=== PATIENT | male | born 1945 | race Caucasian/White ===

== ENCOUNTER 2020-11-23 14:16 | Outpatient (RCR) | payer MEDICARE, SELFPAY ==
[2020-11-23] MEDS: COVID-19 VACC, MRNA(PFIZER)/PF 30 MCG/0.3 ML SYRINGE IM (10:58)
[2020-12-14] MEDS: COVID-19 VACC, MRNA(PFIZER)/PF 30 MCG/0.3 ML SYRINGE IM (10:53)
== END 2021-02-15 23:59 ==
LOC: IMMUN 14:16
PROVIDERS: PCP Family Medicine; Visit Provider Family Medicine
DX: Z23 Encounter for immunization (principal)
CPT/HCPCS: 0001A; 0002A; 91300

== ENCOUNTER 2022-01-25 01:12 | Inpatient (IN) | payer MEDICARE, SELFPAY ==
[2022-01-25] VITALS (19 sets, daily range): BP systolic 98–139; BP diastolic 52–98; PULSE 76–101; RESP 14–24; TEMP 36.4–36.8; O2SAT 92–100; BMI 30.2
--- NOTE | 2022-01-25 01:22 | EKG12_ITS ---
Test Reason : POST STENT Blood Pressure : / mmHG Vent. Rate : 080 BPM Atrial Rate : 080 BPM P-R Int : 194 ms QRS Dur : 102 ms QT Int : 404 ms P-R-T Axes : 062 060 -44 degrees QTc Int : 465 ms Sinus rhythm with frequent Premature ventricular complexes in a pattern of bigeminy Septal infarct , age undetermined T wave abnormality, consider inferior ischemia Abnormal ECG When compared with ECG of 25-JAN-2022 02:12, MANUAL COMPARISON REQUIRED, DATA IS UNCONFIRMED Confirmed by JAVIER PORTILLO, WILLIAM ([id number]), editor index MÓNICA PERALTA ([id number]) on 01/27/2022 11:05:15 A M Referred By: JAIME Confirmed By:GLORIA HERRERA MD
--- NOTE | 2022-01-25 01:41 | ECHOCS_ITS ---
Reason For Study: S/ P GA Procedure This was a 2D Doppler, Color Flow transthoracic echocardiogram. The study was technically difficult. Contrast injection was performed. Exam performed portable in patient room. Left Ventricle Normal LV size. Mild segmental systolic dysfunction (see wall motion). The estimated ejection fraction is 40 %. Diastolic function is indeterminate. Mid-Anterior : Akinetic. Mid-Lateral : Hypokinetic. Mid-inferoseptal : Hypokinetic. Mid-anteroseptal : Akinetic. [place] : Akinetic. Right Ventricle Normal RV size. Normal systolic function. Atria Normal left atrium. Normal right atrium. No doppler evidence for ASD. Mitral Valve There is no mitral annular calcification. Moderate focal mitral valve calcification of the anterior leaflet. Trivial mitral valve insufficiency. Tricuspid Valve Normal tricuspid valve. Trivial tricuspid valve insufficiency. Right ventricular systolic pressure estimated to be 29 mmHg. Aortic Valve Trisinus/trileaflet aortic valve. Mild diffuse aortic valve thickening. Mild focal aortic valve calcification. Mild to moderate aortic stenosis. Pulmonic Valve The pulmonic valve is not well visualized. Great Vessels Normal sized aortic root. Pericardium/Pleural No pericardial effusion. Medication Diluted definity 3ml given slow IV push to enhance endocardial definition. MMode/2D Measurements & Calculations RVDd: 3.5 cm LVOT diam: 2.0 cm Ao root diam: 3.5 cm LVOT area: 3.3 cm2 LAV(MOD-bp): 40.8 ml SV(MOD-sp4): 79.5 ml LVAd ap4: 45.8 cm2 LAV(MOD-bp) Indexed: 18.7 ml/m2 LVLd ap4: 9.2 cm LAV(MOD-sp2): 42.3 ml EDV(MOD-sp4): 189.5 ml LAV(MOD-sp4): 36.4 ml EDV(sp4-el): 193.3 ml LVAs ap4: 33.5 cm2 LVLs ap4: 8.4 cm ESV(MOD-sp4): 110.0 ml ESV(sp4-el): 113.8 ml EF(MOD-sp4): 42.0 % EF(sp4-el): 41.1 % SV(sp4-el): 79.5 ml LA dimension(2D): 3.7 cm LA A4 area: 15.5 cm2 RA A4 area: 14.4 cm2 Time Measurements MV dec time: 0.22 sec Doppler Measurements & Calculations MV E max owen: 114.7 cm/sec Lat Peak E' Owen: 8.7 cm/sec Med Peak E' Owen: 6.7 cm/sec MV A max owen: 114.2 cm/sec E/E' lat: 13.1 E/E' med: 17.1 MV E/A: 1.0 Ao V2 max: 234.1 cm/sec AI max owen: 383.5 cm/sec LV V1 max: 78.8 cm/sec Ao max P.0 mmHg AI max P.9 mmHg LV V1 max P.5 mmHg Ao V2 mean: 167.9 cm/sec AI dec slope: 265.8 cm/sec2 LV V1 mean P.4 mmHg Ao mean P.8 mmHg AI P1/2t: 422.5 msec LV V1 mean: 55.0 cm/sec Ao V2 VTI: 50.5 cm LV V1 VTI: 17.3 cm LAVELLE(I,D): 1.1 cm2 LAVELLE(V,D): 1.1 cm2 SV(LVOT): 56.3 ml PA V2 max: 91.1 cm/sec TR max owen: 252.9 cm/sec TR max P.6 mmHg ECHO/Echo Complete W/ Contrast Interpretation Summary The study was technically difficult. Contrast injection was performed. Mild segmental systolic dysfunction (see wall motion). The estimated ejection fraction is 40 %. Moderate focal mitral valve calcification of the anterior leaflet. Trivial mitral valve insufficiency. Trivial tricuspid valve insufficiency. Mild to moderate aortic stenosis. Right ventricular systolic pressure estimated to be 29 mmHg. Diastolic function is indeterminate. Ordering Physician: Dimas Romero Referring Physician: [place] Performed By: Vianney Cheema RDCS
--- NOTE | 2022-01-25 02:06 | PCM.HP.STD ---
HPI - General General Date of Admission: 01/25/22 Date of Service: 01/25/22 Chief Complaint: Non-STEMI HPI Narrative GRACE CASAS, is a 76 M who presents to [facility] PCU as a direct admission from [facility] emergency room, patient went to the emergency room today with complaints of indigestion-like symptoms and lower chest discomfort. Patient states he has been having problems over the last 2 to 3 weeks, it appears that the discomfort is related to exertion, patient was using a tiller today and he had an increase in discomfort and was instructed to come to the hospital at [facility] for evaluation. Lab work done at [facility] ER showed his troponin to be elevated at 2456, EKG was obtained and it showed a normal sinus rhythm at 90, there were nonspecific ST-T wave changes in the lateral wall leads but no injury pattern was noted by this examiner. Patient's chest x-ray report was not included in the information I received from [facility], I understood that the patient's creatinine was normal-this lab was also not included in the paperwork from [facility]. Patient CBC was unremarkable. At the time of my examination here, patient does not complain of any chest discomfort, shortness of breath, or any nausea. Patient denied any episode of left or right arm pain and he had no episodes of any pain radiating into his jaw or neck area. Patient has no history of hyperlipidemia, he is being treated for hypertension, type 2 diabetes, and it was relayed to me by the emergency room doctor at [facility] that the patient has a history of rheumatoid although he is on no medication for rheumatoid arthritis. I talked with Dr. Mishra last night concerning this patient, the plan for the patient will be to proceed with a cardiac catheterization and possible stent insertion this morning. [facility] Medical History (Updated 01/25/22 @ 02:[address] Dimas Romero, DO) Cellulitis Diabetes Gout Hypertension Kidney stone Home Medications allopurinol 300 mg PO DAILY 11/10/13 [History Last Taken Unknown] losartan [Cozaar] 100 mg PO DAILY 11/10/13 [History Last Taken Unknown] metformin 500 mg PO DAILY 11/10/13 [History Last Taken Unknown] amlodipine 2.5 mg PO DAILY 01/25/22 [History Last Taken Unknown] Allergy/AdvReac Type Severity Reaction Status Date / Time ibuprofen AdvReac Intermediate Swelling Verified 01/25/22 02:03 codeine AdvReac Unknown Vomiting Verified 01/25/22 01:22 gabapentin [From Neurontin] AdvReac Unknown Hives Verified 01/25/22 01:22 lisinopril [From Prinivil] AdvReac Unknown Swelling Verified 01/25/22 01:22 naproxen sodium [From Aleve] AdvReac Unknown Swelling Verified 01/25/22 01:22 Surgical History (Updated 01/25/22 @ 01:35 by Joyce Avery) Hx of appendectomy S/P hernia surgery Social History Smoking Status: Former smoker ROS Constitutional Constitutional: Denies anorexia, change in weight, chills, fatigue, fever(s), malaise, night sweats or weakness Eyes Eyes: Denies blurry vision, change in eye color, change in vision, discharge from eye(s) or eye pain ENT HEENT: Denies abnormal hearing, dysphagia or headache(s) Cardiovascular Cardiovascular: Reports chest pain; Denies claudication, edema or palpitations Respiratory/Chest Respiratory/Chest: Reports dyspnea; Denies cough, hemoptysis, shortness of breath at rest or shortness of breath with exertion Gastrointestinal Gastrointestinal: Denies abdominal pain, constipation, diarrhea, hematemesis, hematochezia, melena, nausea or vomiting Genitourinary Genitourinary: Denies dysuria, hematuria, urinary frequency, urinary hesitancy, urinary incontinence or urinary urgency Musculoskeletal Musculoskeletal: Denies back pain, joint pain, joint stiffness, joint swelling, myalgias or neck pain Neurologic Neurologic: Denies abnormal gait, abnormal speech, dizziness, focal weakness, headache(s), loss of vision, numbness, other visual disturbances, paresthesias, syncope or tingling Psychiatric Psychiatric: Denies anxiety, cognitive impairment, depression, irritability, mood swings or suicidal ideation Endocrine Endocrinology: Denies change in body appearance, cold intolerance, excessive sweating, heat intolerance, polydipsia or polyuria Hematologic/Lymphatic Hematologic/Lymphatic: Reports other Details: And has chronic right leg swelling and redness ; Denies none, anemia, easy bleeding, easy bruising or lymphadenopathy Allergic/Immunologic Allergic/Immunologic: Denies rhinitis, urticaria, eczemia or asthma Vital Signs Vital Signs Vital Signs: 01/25/22 01:48 Temperature 98.3 F Temperature Source Oral Pulse Rate 94 Respiratory Rate 14 Blood Pressure 133/85 H Blood Pressure Mean 101 Blood Pressure Source Monitor Blood Pressure Position Semi-Fowlers Blood Pressure Location Left Arm Pulse Ox 98 Oxygen Delivery Method Room Air Weight Weight: 98.5 kg Body Mass Index (BMI) 30.2 Physical Exam Const alert, oriented x3, no apparent distress and healthy appearing General Appearance: cooperative, well kempt and well developed Orientation / Consciousness: awake, oriented to person, oriented to place and oriented to time HEENT normocephalic, head/scalp atraumatic, hearing grossly normal bilaterally and moist oral mucous membranes Eyes PERRL, EOMs intact bilaterally and conjunctivae normal Neck nuchal rigidity, supple, no JVD, thyroid normal and no carotid bruits General: trachea midline Resp normal respiratory effort, no retractions, no use of accessory muscles and clear to auscultation bilaterally Auscultation: Negative for rales, rhonchi or wheezes Cardio regular rate, regular rhythm, S1 normal heart sound, S2 normal heart sound, no murmurs, no rub and no gallops GI normal to inspection, nondistended, normoactive bowel sounds, soft to palpation, non-tender and non-distended Extremity Extremity Narrative: Patient has chronic venous stasis changes noted over the right lower leg along with swelling as compared with the left lower leg. The right lower leg is somewhat warmer to the touch than the left lower leg. Skin Skin Narrative: There is evidence of chronic venous stasis changes over the right lower leg General Skin Exam: no breakdown Neuro oriented x3, CN's II-XII intact bilaterally, no focal motor deficits and no sensory deficits noted Sensorium / Orientation: awake and alert Speech: speech normal Psych affect normal Assessment & Plan Assessment/Plan (1) Non-STEMI (non-ST elevated myocardial infarction): PLAN: 1. [id number] was admitted to PCU, he was placed on aspirin, on a statin, and his heparin drip which was started at [facility] is going to be continued, patient was placed on a beta-marisa, cardiac enzymes will be cycled. Patient will have an echocardiogram performed, he will be seen by cardiology in consultation early this morning for a cardiac catheterization today. #2 essential hypertension-patient's medications are on hold at this time due to his n.p.o. status for cardiac catheterization, they will need to be ordered after the cardiac catheterization. #3 type 2 diabetes-patient's metformin will be held, I did not order fingerstick blood sugars on the patient-he is n.p.o. at this time #4 chronic lymphedema the right lower leg with stasis dermatitis changes-patient stated that he used to wear compression stockings but he has not worn any in quite some time. I advised the patient to consider wrapping his leg at home or getting another prescription for compression stockings. Charges/Coding Visit Charges Inpatient E&M: 19323 Init Hosp L3
--- NOTE | 2022-01-25 02:55 | NURSING ---
pt arrived from [facility] with Heparin infusing at 10ml/hr. Spoke with Kan in pharmacy who stated to keep Heparin running at 10cc/hr and adjust with next PTT.
[2022-01-25 03:08] LABS: Troponin-I HS 5126 pg/mL (3.0-78.0)
[2022-01-25 04:46] LABS: Troponin-I HS 8235 pg/mL (3.0-78.0)
[2022-01-25] MEDS: Metoprolol Tartrate 25 MG Tablet 12.5 MG PO ×2 (06:17→20:57)
[2022-01-25] MEDS: Aspirin 81 MG TAB.CHEW PO (06:17)
[2022-01-25 06:55] LABS: Partial Thromboplast Time 44.9 Seconds (24.1-36.2)
--- NOTE | 2022-01-25 07:45 | NURSING ---
Heparin drip turned off per Dr. Mishra's verbal order
[2022-01-25] MEDS: 0.9% Saline Lock 10 ML Syringe IV ×2 (07:47→12:52)
--- NOTE | 2022-01-25 08:22 | CON.PCM.CA_ITS ---
Assessment & Plan Assessment/Plan (1) Non-STEMI (non-ST elevated myocardial infarction): PLAN: The patient presents with a clinical scenario and objective findings compatible with an acute non-ST segment elevation RI. There is concerns this is a type I event. At the present time the patient is being monitored. He will continue medical management as deemed appropriate. He has been recommended for further evaluation with diagnostic cardiac catheterization. The procedure and risks of been discussed with him. He was agreeable to this. (2) HTN (hypertension): PLAN: The patient will continue antihypertensive therapy with adjustment as deemed appropriate. (3) Diabetes mellitus: PLAN: The patient will continue evaluation care per internal medicine. (4) Leg edema: PLAN: The patient has chronic lower extremity peripheral pitting edema with the right being greater than left which he states has been present since he had lower extremity cellulitis years ago . (5) Cardiac murmur: PLAN: She does have a cardiac murmur. He will be further evaluated with a transthoracic echocardiogram to evaluate for any obvious underlying ovular heart related issues. Addt'l Comments This note was generated using a voice recognition system and there may be incorrect words, spelling or punctuation that were not noted when reviewing the office note prior to saving. HPI Consult Data Date of Consult: 01/25/22 HPI Narrative HPI Narrative: GRACE CASAS, is a 76 year old white male who presents for cardiovascular consultation based upon concerns of an acute non-ST segment elevation RI for imposed upon a history of hypertension and hyperlipidemia. To the best of his knowledge he does not believe he has ever been diagnosed with any cardiovascular condition in the past. He states that over the last 1 to 2 weeks he has not felt as well when he has been up and active. He states he has had gas bubble sensation in his upper abdomen and lower chest as well as a discomfort in his left chest area and radiating down his left upper extremity. He became more short of breath and dyspneic with activity. He would have to stop and rest. He does not recall any ongoing nausea, emesis, or becoming abruptly diaphoretic. There was no report of near syncope or syncope. He states his symptoms worsened yesterday when he was working in his garden. He subsequently presented to [facility] emergency department. There he underwent evaluation. He had abnormal high-sensitivity troponin I levels and was subsequently recommended for transfer to [facility] for further evaluation and care. Here he states while resting he has felt somewhat better. His high sensitive troponin I levels have been elevated. His ECG demonstrated the appearance of sinus rhythm with occasional PVCs with a septal RI pattern of indeterminate age. He has been treated medically including IV heparin. [facility], [facility] Medical History (Updated 01/25/22 @ 08:[address] King Mishra MD) Cardiac murmur Cellulitis Diabetes Diabetes mellitus Gout HTN (hypertension) Hypertension Kidney stone Leg edema Home Medications allopurinol 300 mg PO DAILY 11/10/13 [History Last Taken Unknown] losartan [Cozaar] 100 mg PO DAILY 11/10/13 [History Last Taken Unknown] metformin 500 mg PO DAILY 11/10/13 [History Last Taken Unknown] amlodipine 2.5 mg PO DAILY 01/25/22 [History Last Taken Unknown] Allergy/AdvReac Type Severity Reaction Status Date / Time ibuprofen AdvReac Intermediate Swelling Verified 01/25/22 02:03 codeine AdvReac Unknown Vomiting Verified 01/25/22 01:22 gabapentin [From Neurontin] AdvReac Unknown Hives Verified 01/25/22 01:22 lisinopril [From Prinivil] AdvReac Unknown Swelling Verified 01/25/22 01:22 naproxen sodium [From Aleve] AdvReac Unknown Swelling Verified 01/25/22 01:22 Surgical History (Updated 01/25/22 @ 01:35 by Joyce Avery) Hx of appendectomy S/P hernia surgery Social History Smoking Status: Former smoker ROS Constitutional Constitutional: Reports as per HPI Eyes Eyes: Reports as per HPI ENT HEENT: Reports as per HPI Cardiovascular Cardiovascular: Reports chest pain, chest pain with activity, dyspnea on exertion and radiating jaw, neck or arm pain Respiratory/Chest Respiratory/Chest: Reports dyspnea Gastrointestinal Gastrointestinal: Reports as per HPI Genitourinary Genitourinary: Reports as per HPI Musculoskeletal Musculoskeletal: Reports as per HPI Integumentary Integumentary: Reports as per HPI Neurologic Neurologic: Reports as per HPI Psychiatric Psychiatric: Reports as per HPI Physical Exam Const alert, oriented x3 and no apparent distress Orientation / Consciousness: awake HEENT normocephalic, head/scalp atraumatic and hearing grossly normal bilaterally Eyes PERRL, EOMs intact bilaterally and conjunctivae normal Neck full ROM, supple and no JVD Resp clear to auscultation bilaterally Cardio regular rate, regular rhythm, S1 normal heart sound and S2 normal heart sound Heart Sounds: murmur systolic II/ soft mid left sternal border and LVOT GI normal to inspection, nondistended, normoactive bowel sounds Extremity General Extremity: edema bilateral lower extremity (R>L: Chronic appearing) Details: moderate Skin Skin Narrative: Neck appearing right lower extremity edematous changes Neuro oriented x3, moves all extremities, no focal motor deficits and no sensory deficits noted Psych mental status grossly normal Risk Stratification Risk Stratification Applicable: Yes Age >/= 65: Yes >/= 3 CAD Risk Factors (HTN, HLD, DM, family hx of CAD, or current smoker): Yes Aspirin Use in the Past 7 Days: No Severe Angina (>/= episodes in 24 hours): Yes EKG ST Changes >/= 0.5mm: No Positive Cardiac Marker: Yes TEDDY Risk Stratification Score: 4 TEDDY % Risk: 20% Risk Procedure Criteria Type of Procedure Procedure Type: Elective Elective Risks - COVID COVID Risk Discussion: The surgeon/proceduralist and patient have discussed in detail the risk of exposure to and/or potential harm posed by the COVID-19 virus with having a surgery/procedure at this time versus the risk of delaying the surgery/procedure. It is not possible to know either the risk of delaying the surgery or procedure or chance of getting an infection with perfect accuracy, but a joint decision was made between the patient and the surgeon/proceduralist to proceed at this time with the scheduled surgery/procedure as indicated on the consent form. Objective Data Vital Signs: Vital Signs Temp Pulse Resp BP Pulse Ox 98.1 F 83 18 139/66 H 97 01/25/22 08:00 01/25/22 08:00 01/25/22 08:00 01/25/22 08:00 01/25/22 08:00 Oxygen Delivery Method Room Air Weight: 217 lb 2.485 oz Body Mass Index (BMI) 30.2 Intake & Output: Intake and Output for Last 24 Hours 01/23/22 01/24/22 01/25/22 23:59 23:59 23:59 Intake Total 120 / 120 Balance 120 / 120 Lab / Micro Data Labs: Laboratory Results - last 24 hr 01/25/22 02:00: Troponin I High Sens 5126 H* 01/25/22 03:52: Troponin I High Sens 8235 H* 01/25/22 06:00: APTT 44.9 H Cardiology Labs/Tests 01/25/22 06:00: APTT 44.9 H Rhythm: Sinus rhythm EKG: As noted above
[2022-01-25 09:11] LABS: Troponin-I HS 14790 pg/mL (3.0-78.0)
--- NOTE | 2022-01-25 09:37 | CASEMGMT ---
[facility], the following are in-network tertiary facilities: [facility], [facility], [facility], [facility], [facility], [facility], [place], [employer], and . Triston GUADALUPE CM
--- NOTE | 2022-01-25 10:29 | CL.D_ITS ---
Patient Name: GRACE CASAS Study Date: 01/25/2022 Performing: King Mishra MD Ht: 70.86 inches 180 cm : 1945 Wt: 218.26 lbs 99 kg Age: 76 Gender: male BSA: 2.19 PROCEDURE(S) PERFORMED DC01-(17993)LHC/COR/LV IC12-(77003/C9600)ARMOND W/WO PTCA, SINGLE CORONARY ARTERY CLINICAL PROFILE AND INDICATIONS Indications: Worsening Angina, ACS <= 24 hrs, Suspected CAD Heart Failure: None Stress/Imaging Stress/Image Study Performed: No Angina Classification Anginal Classification w/in 2 Weeks: CCS III CAD Presentations: Non-STEMI. CONCLUSIONS Elevated Left Ventricular End Diastolic Pressure Segmented LV systolic dysfunction- Mild LVEF: by LV gram 45 % [place] Multivessel CAD Mitral Valve Insufficiency Mild RECOMMENDATIONS Risk factor modification Medical therapy Referred for immediate PCI DESCRIPTION OF PROCEDURE The patient arrived to the procedure lab. The risks and benefits of the procedure as well as a full d escription of our services here and current unavailability of surgical backup were fully explained to the patient and/or their significant other prior to the catheterization. The Timeout was completed, verifying the correct patient and procedure. The patient's procedural site was prepped and draped in the usual fashion. Local anesthetic was given subcutaneously to right radial region with Lidocaine 2% . Using a modified Seldinger technique, arterial access was obtained via the right radial artery, a 6 Fr sheath was inserted. Right Coronary Artery selective angiography was performed in multiple views using a 5 Fr. 4.0 [place] catheter. Left Coronary Artery selective angiography was performed in multipl e views using a 5 Fr. JL3.5 catheter. Left Ventriculography was performed in STEIN[place]G projection using a 5 Fr. [place] catheter. LV to AO pullback pressures were then recorded.The arterial sheath was pulled and a TR Band was applied for hemostasis CORONARY ANGIOGRAPHY DOMINANCE: Right Dominant LEFT HEART ASSESSMENT Left Ventricular Ejection Fraction: by LV Gram 45 % Anterior Hypokinesis. Apical Akinesis Elevated Left Ventricular End Diastolic Pressure LVEDP: 31 mmHg LEFT MAIN: Mild luminal irregularities LEFT ANTERIOR DESCENDING ARTERY: Mild luminal irregularities PROX LAD: 95 % Stenosis DIAGONAL 1: Proximal - Mild luminal irregularities, Proximal - Mild luminal irregularities CIRCUMFLEX ARTERY: PROX CIRC: Mild luminal irregularities RIGHT CORONARY ARTERY: Mild luminal irregularities VALVE FINDINGS: Mitral Valve Insufficiency - Grade 1 AORTIC ROOT: Angiographically normal COMPLICATIONS No Complications PROCEDURE MEDICATIONS Fentanyl 50 mcg IV Versed 1 mg IV Versed 1 mg IV Oxygen: 2 L/min via nasal cannula Heparin given IA 01/25/2022 09:14:40 Heparin 4000 unit(s) IV 01/25/2022 09:51:06 Verapamil 2.5mg, Ntg 100mcgs, 3000 units of Heparin given IA 01/25/2022 09:14:40 SUMMARY OF HEMODYNAMIC DATA Time AIR REST ECG 08:57:20 AO 108/70 (87) SA 09:23:31 AO 105/61 (80) 09:30:31 LV 148/14, 35 09:41:02 LV 141/11, 31 09:41:10 LV 134/11, 37 09:42:09 LV 131/11, 29 09:42:17 LVp 139/10, 39 09:42:23 AOp 114/61 (79) 09:42:30 10:27:31 Signed By King Mishra MD On 01/25/2022 10:28:21 King Mishra MD
--- NOTE | 2022-01-25 10:53 | EKG12_ITS ---
Test Reason : CP ADMIT Blood Pressure : / mmHG Vent. Rate : 096 BPM Atrial Rate : 096 BPM P-R Int : 188 ms QRS Dur : 098 ms QT Int : 366 ms P-R-T Axes : 051 022 076 degrees QTc Int : 462 ms Sinus rhythm with frequent and consecutive Premature ventricular complexes Septal infarct , age undetermined Abnormal ECG When compared with ECG of 29-JAN-2002 08:43, Premature ventricular complexes are now Present Septal infarct is now Present QT has lengthened Confirmed by AHSAN PORTILLO, JENNIFER ([id number]), film editor supervisor MÓNICA PERALTA ([id number]) on 01/25/2022 2:07:54 PM Referred By: DR SANDOVAL Confirmed By:JENNIFER FOREMAN MD
--- NOTE | 2022-01-25 11:09 | CL.I_ITS ---
Patient Name: GRACE CASAS Study Date: 01/25/2022 Performing: Madelaine Horner MD Ht: 70.87 inches 180 cm : 1945 Wt: 218.26 lbs 99 kg Age: 76 Gender: male BSA: 2.19 PROCEDURE(S) PERFORMED IC12-(54148/C9600)ARMOND W/WO PTCA, SINGLE CORONARY ARTERY CLINICAL PROFILE AND CO-MORBIDITIES Indications: Worsening Angina, ACS <= 24 hrs, Suspected CAD Heart Failure: None Stress/Imaging Stress/Image Study Performed: No Angina Classification Anginal Classification w/in 2 Weeks: CCS III CAD Presentations: Non-STEMI. CONCLUSIONS Successful ARMOND to pLAD RECOMMENDATIONS DESCRIPTION OF PROCEDURE The patient arrived to the procedure lab. The risks and benefits of the procedure as well as a full d escription of our services here and current unavailability of surgical backup were fully explained to the patient and/or their significant other prior to the catheterization. The Timeout was completed, verifying the correct patient and procedure. The patient's procedural site was prepped and draped in the usual fashion. Local anesthetic was given subcutaneously to right radial region with Lidocaine 2% Using a modified Seldinger technique,arterial access was obtained via the right radial artery, a 6Fr sheath was inserted. Right Coronary Artery selective angiography was performed in multiple views usi ng a 5 Fr. 4.0 [place] catheter. Left Coronary Artery selective angiography was performed in multiple v iews using a 5 Fr. JL3.5 catheter. Left Ventriculography was performed in STEINBERG projection using a 5 Fr . Pigtail catheter. LV to AO pullback pressures were then recorded.The images were reviewed and options discussed. A decision was then made to proceed with an Intervention, IVUS or oth er adjunct procedure. XB 3.0 Guide catheter was inserted and engaged into the LCA. BMW Hoven Guide wire was advance d to the LAD. Emerge 3.0 x 12 Balloon catheter was inserted. Balloon catheter was advanced across les ion in the LAD, proximal. Angiogram performed pre balloon dilatation. PTCA balloon inflated at 8 atms for 12 secs. PTCA balloon inflated at 8 atms for 10 secs. Angiogram performed post balloon dilatamelisa Turner 3.5 x 13 Drug Eluting stent was inserted. Drug Eluting stent was advanced across the lesion in the LAD, proximal. Angiogram performed pre stent deployment. Angiogram performed post stent deplo yment. The arterial sheath was pulled and a TR Band was applied for hemostasis INTERVENTION INFORMATION LESION SITE: LAD (Proximal) Lesion Complexity: High/C, chronic total occlusion: No, lesion at bifurcation: No, thrombus present: No, lesion length: 12 mm, culprit lesion: Yes, Previously treated lesion: No Pre Stenosis: 95 % Pre intervention TEDDY flow: 3 PROCEDURE: Drug Eluting Stent with pre dilatation. Post Stenosis: 0 % Post intervention TEDDY flow: 3 Lesion Devices: Stearns .014 BMW Hoven Straight 190cm Cardinal 6 Fr XB3.0 100cm Guide Catheter Cricket Sci EMERGE MR 3.00x12 BALLOON Biotronik Orsiro [place] MR ARMOND 3.5x13 COMPLICATIONS No Complications PROCEDURE MEDICATIONS Fentanyl 50 mcg IV Versed 1 mg IV Versed 1 mg IV Oxygen: 2 L/min via nasal cannula Brilinta 180 mg PO @ 01/25/2022 10:31:22 Heparin given IA 01/25/2022 09:14:40 Heparin 4000 unit(s) IV 01/25/2022 09:51:06 Verapamil 2.5mg, Ntg 100mcgs, 3000 units of Heparin given IA 01/25/2022 09:14:40 SUMMARY OF HEMODYNAMIC DATA Time AIR REST ECG 08:57:20 AO 108/70 (87) SA 09:23:31 AO 105/61 (80) 09:30:31 LV 148/14, 35 09:41:02 LV 141/11, 31 09:41:10 LV 134/11, 37 09:42:09 LV 131/11, 29 09:42:17 LVp 139/10, 39 09:42:23 AOp 114/61 (79) 09:42:30 RM AIR REST 10:27:31 Signed By Madelaine Horner MD On 01/25/2022 11:08:11 Madelaine Horner MD
[2022-01-25 11:20] LABS: Hematocrit 37.1 % (40-54); Hemoglobin 12.9 g/dL (13.0-16.5); Mean Corp Hgb Conc 34.8 g/dL (32-36); Mean Corpuscular Hgb 34.9 pg (27.0-32.0); Mean Corpuscular Volume 100.3 fL (80-94); Mean Platelet Vol. 10.6 fl (6.2-12.0); Platelet Count 196 K/mm3 (150-450); RBC Distribution Width CV 13.5 % (11.6-14.6); RBC Distribution Width SD 49.6 fl (35.1-43.9)
--- NOTE | 2022-01-25 11:27 | CRPHASE1 ---
Patient Communication PHII Cardiac Rehab Discussed with Patient:: Yes Guide to Cardiac Rehab Given to Patient:: Yes Cardiac Rehab Facility Choice List Given to Patient:: Yes Choice Program [facility] CR PHII:: Communication Given to CR Neurosurgery Spine Physician:: Milvia Horner Refer Phase II Cardiac Rehab:: Yes Sessions:: 36 sessions - 3 days/wk, 12 weeks Cardiac Rehabilitation Info Cardiac Rehabilitation Program Information: Cardiac Rehabilitation is important for patients like you who are recovering from a heart problem. Cardiac rehabilitation programs are recognized as integral to the continued care of the patient with coronary heart disease. The cardiac rehabilitation program is designed to optimize a patient's physical, psychological, and social functioning. Health child care group leader work in cardiac rehabilitation programs and assist you with getting the treatments you need to get stronger and healthier - like exercise, healthy eating habits, and medications. Cardiac rehabilitation has been show to help people with heart problems live longer and have better life enjoyment than people who do not go to cardiac rehabilitation. Please contact the Cardiac Rehabilitation Program at [facility] at in two weeks if you have not heard from them.
--- NOTE | 2022-01-25 11:28 | CRPH1.INSTRU ---
General Education CAD and cardiac anatomy and function:: Patient communicates acknowledgment Explanation of diagnoses and procedures:: Patient communicates acknowledgment Sign/Symptoms of [place]:: Patient communicates acknowledgment Antiplatelet therapy: Patient communicates acknowledgment Proper use of NTG-SL: Patient communicates acknowledgment Emergency procedures and activation of EMS: Patient communicates acknowledgment Compliance of all prescribed medications: Patient communicates acknowledgment Smoking Patient Nicotine/Smoking Risk Factors Are:: Cigarettes Recommendations Include:: Previous smoker; encourage continued cessation Nicotine/Smoking Response Code:: Patient communicates acknowledgment Dyslipidemia Patient Dyslipidemia Risk Factors Are:: Total Cholesterol, Triglycerides, HDL, LDL Recommendations Include:: Lipid profile not available Dyslipidemia Response Code:: Patient communicates acknowledgment Overweight/Obesity Patient Overweight/Obesity Risk Factors Are:: Obesity - > or = 30 Recommendations Include:: Weight loss of 5-10% Overweight/Obesity:: Patient communicates acknowledgment Hypertension Recommendations Include:: Maintain BP <130/85 Hypertension:: Patient communicates acknowledgment Heart Disease Patient Heart Disease Risk Factors Are:: Family history of heart disease < 65 years old, Previous cardiac event Recommendations Include:: Educated family members of their risk, Educated family members of importance of prevention of heart disease Heart Disease Response Code:: Patient communicates acknowledgment Diabetes Patient Diabetes Risk Factors Are:: Elevated blood sugars Recommendations Include:: Maintain fasting blood sugars 70-110 md/dL, Maintain HgbA1c of 6% or less, Monitor blood sugar as prescribed, Diabetic dietary guidelines, Decrease/maintain body weight Diabetes:: Patient communicates acknowledgment Sedentary Patient Sedentary Risk Factors Are:: Lack of regular exercise Recommendations Include:: Aerobic exercise 5-7 times/week for 20-30 minutes continuously, Benefits of regular exercise, Discussed home walking program, Monitored Outpatient Cardiac Rehab Sedentary Response Code:: Patient communicates acknowledgment Stress Recommendations Include:: Identification of stressors, and assessment of coping skills, Stress management techniques Stress Response Code:: Patient communicates acknowledgment
[2022-01-25] MEDS: 0.9% Normal Saline 1,000 ML 80 ML IV (11:30)
--- NOTE | 2022-01-25 12:00 | CHAPLAIN ---
Type of Pastoral Visit _x__ Initial Visit ___ Follow-up Visit ___ On-call Visit ___ General Patient Visit ___ Spiritual Assessment ___ Family Conference ___ Bereavement ___ Rapid Response ___ Code Blue ___ Other (describe below) Pastoral Care Referral From _x__ Patient ___ Family ___ Nurse ___ Physician ___ Planning Manager ___ Underwriting Support Specialist ___ Other (describe below) Sacrament/Intervention _x__ Active listening ___ Anointing ___ Taoism ___ Bereavement ___ Communion ___ Valeri exploration ___ _x__ Life review _x__ Prayer ___ Reconciliation ___ Sacrament of Sick ___ Supportive presence ___ Wedding ___ Other (describe below) Pastoral Comments
--- NOTE | 2022-01-25 12:40 | NURSING ---
Pt complaining that he cannot breathe. O2 saturations 97-100% on RA at this time, placed on 2L NC for comfort and notified MD.
[2022-01-25] MEDS: Morphine 4 MG/ML Syringe IV (12:53)
[2022-01-25] MEDS: ALPRAZolam 0.25 MG Tablet PO ×2 (13:11→20:55)
--- NOTE | 2022-01-25 13:30 | CASEMGMT ---
COLLINS JOSEPH assessment: Face to Face with patient for initial transition planning/care coordination assessment. COLLINS JOSEPH introduced self and role at [facility], pt voices understanding and consents to assessment. Pt is sitting up in chair in no distress on 2L nc. Pt's daughter is at bedside during assessment. Pt is A/Ox4 and answers all questions appropriately. Care providers, pharmacy, and demographics verified/updated. Presentation: Pt is direct admit from [facility] for epigastric pain, worse w/ exertion Admitting dx: NSTEMI PCP: Steffanie Specialists: None Preferred Pharmacy: [facility] Insurance: [facility] Prescription Benefit: [facility] Living Will/HPOA: Pt does not have LW/HPOA and declines AD info. LNOK: Miryam Mclaughlin, daughter; Don Richardson, brother Living Arrangements: Pt lives with daughter, son-in-law, and grandson in mobile home with 3 steps in and states no concerns at home. Pt is independent with ADL's. Transportation: Pt drives self and states no transportation concerns. DME/HHC: Pt has a cane at home and states no need for any further DME. Pt states no hx of HHC but has been to [facility] in the past. Pt/daughter state no concerns with going home at time of discharge. Pt is retired. Pt chews tobacco but states does not smoke cigarettes and rarely drinks ETOH. Pt voices no further concerns/needs. CM to follow for any further discharge planning/needs. Advised pt to ask for CM if any further questions/concerns/needs arise, voices understanding. Pt Goal: Home Plan[place] COLLINS JOSEPH
--- NOTE | 2022-01-25 13:52 | PN.HOSP_ITS ---
Documented by User: Gilberto RABAGO 01/25/22 13:56 Hospitalist Note Patient is a 76-year-old male who was admitted early on the morning of 01/25/2022 for evaluation of chest pain. 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 Recommendations were to continue medical management and refer for immediate PCI. Patient underwent PCI and had stent placed. Recommendations were to continue current management and initiate ticagrelor with aspirin, statin and beta-marisa regimen. PT/OT eval pending, case fitter consult for discharge planning. Patient seen by Gilberto Rosas PA-C, under the supervision of Dr. Freedman. Documented by User: Dr. Harley Freedman MD 01/25/22 15:34 Hospitalist Note Patient was admitted early in the morning by my colleague as a direct transfer from [facility] ED. Patient has complaint of chest discomfort and shortness of breath dizziness ongoing for last 2 to 3 weeks mainly with exertion but has been more frequent and persistent therefore went to ED for evaluation. The patient is admitted in PCU. Twelve-lead EKG done shows normal sinus rhythm with frequent PVCs with nonspecific ST-T changes. QTc 462 ms. Isolated troponin high 510 126 went up to 14, 790. Patient was taken to [facility]. Proximal LAD 95% stenosis, diagonal 1 mid luminal irregularities. Patient had PCI done. LV gram EF 45% with anterior hypokinesis and apical akinesis. Discussed with the apprentice jockey. Patient on guideline directed medications for non-STEMI. On aspirin, metoprolol, Brilinta and atorvastatin. BMP is ordered. Patient on losartan 100 mg daily at home. Hold losartan today and may be resumed tomorrow if blood pressure permits with lower dose. 2D echo was done, EF 40%. Mild to moderate aortic stenosis, trivial MR and TR.
[2022-01-25] MEDS: Atorvastatin Calcium 40 MG Tablet PO (20:55)
[2022-01-25] MEDS: TICAGRELOR 90 MG TABLET PO (20:55)
[2022-01-26] VITALS (7 sets, daily range): BP systolic 112–122; BP diastolic 60–70; PULSE 80–85; RESP 18; TEMP 36.8–37.1; O2SAT 94–96
[2022-01-26 06:22] LABS: Absolute Lymphocyte Count 1.05 X10^3/uL (0.83-4.51); Absolute Neutrophil Count 4.3 X10^3/uL (2.0-7.7); Basophil# 0.02 X10^3/uL; Basophil% 0.3 % (0-1); Eosinophil# 0.14 X10^3/uL; Eosinophils% 2.3 % (0-5); Hematocrit 35.7 % (40-54); Hemoglobin 12.2 g/dL (13.0-16.5); Lymphocyte # 1.05 X10^3/ul (0.83-4.51); Lymphocyte % 17.5 % (19-41); Mean Corp Hgb Conc 34.2 g/dL (32-36); Mean Corpuscular Hgb 33.4 pg (27.0-32.0); Mean Corpuscular Volume 97.8 fL (80-94); Mean Platelet Vol. 9.5 fl (6.2-12.0); Monocyte# 0.49 X10^3/uL; Monocyte% 8.2 % (0-10); NRBC Flagged by Analyzer 0 % (0-5); Neutrophil # 4.28 X10^3/uL (2.7-7.7); Neutrophil % 71.2 % (47-70); Platelet Count 183 K/mm3 (150-450); RBC Distribution Width CV 13.7 % (11.6-14.6); RBC Distribution Width SD 49.1 fl (35.1-43.9); Red Blood Count 3.65 M/mm3 (4.6-6.2)
[2022-01-26 06:51] LABS: ALB/GLOB Ratio 0.8 RATIO (0.9-2.4); AST(SGOT) 72 U/L (15-37); Alanine Aminotransfer ALT/SGPT 37 U/L (16-61); Albumin, Serum 2.8 g/dL (3.2-5.0); Alkaline Phosphatase 57 U/L (45-117); Anion Gap 7 (5-15); BUN 20 mg/dL (7-18); BUN/Creat Ratio 17.9 RATIO (10-20); Calcium,Total 8.1 mg/dL (8.5-10.1); Chloride 107 mmol/L (98-107); Creatinine, Serum 1.12 mg/dL (0.70-1.30); EST Glomerular Filtration Rate 68 mL/min (>60); Est Glom Filt Rate - Afr Amer 82 mL/min (>60); Globulin 3.4 g/dL (2.2-4.2); Glucose 124 mg/dL (74-106); Potassium 3.9 mmol/L (3.5-5.1); Protein, Total 6.2 g/dL (6.4-8.2); Sodium Level 136 mmol/L (136-145)
[2022-01-26] MEDS: TICAGRELOR 90 MG TABLET PO (08:52)
[2022-01-26] MEDS: Aspirin 81 MG TAB.CHEW PO (08:52)
[2022-01-26] MEDS: ALPRAZolam 0.25 MG Tablet PO (08:52)
[2022-01-26] MEDS: Metoprolol Tartrate 25 MG Tablet 12.5 MG PO (08:52)
[2022-01-26] MEDS: Losartan Potassium 50 MG Tablet PO (08:53)
--- NOTE | 2022-01-26 09:36 | PN.CARD_ITS ---
Subjective Subjective The patient is awake and alert. He denies ongoing symptoms of classic angina pectoris at this time. He states occasionally he still feels somewhat short of breath as he points to his epigastric area. He states he is also coughed up some dark sputum. He has been up and active without any obvious difficulty with ambulation-in the room. Objective Data Vital Signs: Vital Signs Temp Pulse Resp BP Pulse Ox 98.2 F 81 18 112/60 96 01/26/22 08:45 01/26/22 08:52 01/26/22 08:45 01/26/22 08:52 01/26/22 08:45 Oxygen Flow Rate (L/min) 2 Oxygen Delivery Method Room Air Weight: 217 lb 2.485 oz Body Mass Index (BMI) 30.2 Intake & Output: Intake and Output for Last 24 Hours 01/24/22 01/25/22 01/26/22 23:59 23:59 23:59 Intake Total 681.99 / 921.99 440 / 440 Output Total 300 / 300 Balance 681.99 / 621.99 140 / 140 Lab / Micro Data Result Diagrams: 01/26/22 05:40 01/26/22 05:40 Labs: Laboratory Results - last 24 hr 01/25/22 03:52: WBC 6.0, RBC 3.70 L, Hgb 12.9 L, Hct 37.1 L, MCV 100.3 H, MCH 34.9 H, MCHC 34.8, RDW Std Deviation 49.6 H, RDW Coeff of Fabian 13.5, Plt Count 196, MPV 10.6 01/26/22 05:40: WBC 6.0, RBC 3.65 L, Hgb 12.2 L, Hct 35.7 L, MCV 97.8 H, MCH 33.4 H, MCHC 34.2, RDW Std Deviation 49.1 H, RDW Coeff of Fabian 13.7, Plt Count 183, MPV 9.5, Immature Gran % (Auto) 0.500, Neut % (Auto) 71.2 H, Lymph % (Auto) 17.5 L, Erath % (Auto) 8.2, Eos % (Auto) 2.3, Baso % (Auto) 0.3, Absolute Neuts (auto) 4.3, Absolute Lymphs (auto) 1.05, Nucleated RBC % 0 01/26/22 05:40: Sodium 136, Potassium 3.9, Chloride 107, Carbon Dioxide 22.0, Anion Gap 7, BUN 20 H, Creatinine 1.12, Estim Creat Clear Calc 60.70, Est GFR (MDRD) Af Amer 82, Est GFR (MDRD) Non-Af 68, BUN/Creatinine Ratio 17.9, Glucose 124 H, Calcium 8.1 L, Total Bilirubin 0.80, AST 72 H, ALT 37, Alkaline Phosphatase 57, Total Protein 6.2 L, Albumin 2.8 L, Globulin 3.4, Albumin/Globulin Ratio 0.8 L Cardiology Labs/Tests 01/25/22 03:52: WBC 6.0, RBC 3.70 L, Hgb 12.9 L, Hct 37.1 L, MCV 100.3 H, MCH 34.9 H, MCHC 34.8, Plt Count 196, MPV 10.6 01/26/22 05:40: WBC 6.0, RBC 3.65 L, Hgb 12.2 L, Hct 35.7 L, MCV 97.8 H, MCH 33.4 H, MCHC 34.2, Plt Count 183, MPV 9.5, Immature Gran % (Auto) 0.500, Neut % (Auto) 71.2 H, Lymph % (Auto) 17.5 L, Erath % (Auto) 8.2, Eos % (Auto) 2.3, Baso % (Auto) 0.3, Absolute Neuts (auto) 4.3, Nucleated RBC % 0 01/26/22 05:40: Sodium 136, Potassium 3.9, Chloride 107, Carbon Dioxide 22.0, Anion Gap 7, BUN 20 H, Creatinine 1.12, Est GFR (MDRD) Af Amer 82, Est GFR (MDRD) Non-Af 68, BUN/Creatinine Ratio 17.9, Glucose 124 H, Calcium 8.1 L, Total Bilirubin 0.80 Rhythm: Sinus rhythm EKG: Sinus rhythm; septal AK of indeterminate age; nonspecific T wave change- less prominent than the previous ECG Radiography Diagnostic Testing: Radiology Impression Echocardiogram 01/25/22 01:41 Interpretation Summary The study was technically difficult. Contrast injection was performed. Mild segmental systolic dysfunction (see wall motion). The estimated ejection fraction is 40 %. Moderate focal mitral valve calcification of the anterior leaflet. Trivial mitral valve insufficiency. Trivial tricuspid valve insufficiency. Mild to moderate aortic stenosis. Right ventricular systolic pressure estimated to be 29 mmHg. Diastolic function is indeterminate. Ordering Physician: Dimas Romero Referring Physician: [place] Performed By: Vianney Cheema RDCS Physical Exam Const alert, oriented x3 and no apparent distress Orientation / Consciousness: awake HEENT normocephalic, head/scalp atraumatic and hearing grossly normal bilaterally Eyes PERRL, EOMs intact bilaterally and conjunctivae normal Neck full ROM, supple and no JVD Resp clear to auscultation bilaterally Cardio regular rate, regular rhythm, S1 normal heart sound and S2 normal heart sound Heart Sounds: murmur systolic II/ soft mid left sternal border and LVOT GI normal to inspection, nondistended, normoactive bowel sounds Extremity General Extremity: edema bilateral lower extremity (R>L: Chronic appearing) Details: moderate Skin Skin Narrative: Neck appearing right lower extremity edematous changes Neuro oriented x3, moves all extremities, no focal motor deficits and no sensory deficits noted Psych mental status grossly normal Assessment & Plan Assessment/Plan (1) Non-STEMI (non-ST elevated myocardial infarction): PLAN: The patient presents with a clinical scenario and objective findings compatible with an acute non-ST segment elevation AK. There is concerns this is a type I event. The patient has undergone further evaluation with diagnostic cardiac catheterization. He was found to have angiographically significant appearing LAD disease. He subsequently underwent LAD PCI/ARMOND. He is going to continue medical therapy. (2) Cardiomyopathy, ischemic: PLAN: The patient does appear to have diminished LV systolic function. This appears to be based upon his LAD disease process. He will continue medical therapy. He will be followed by echocardiogram in the future to monitor for changes in his left ventricular wall motion and systolic function. (3) HTN (hypertension): PLAN: The patient will continue antihypertensive therapy with adjustment as deemed appropriate. (4) Diabetes mellitus: PLAN: The patient will continue evaluation care per internal medicine. (5) Leg edema: PLAN: The patient has chronic lower extremity peripheral pitting edema wit h the right being greater than left which he states has been present since he had lower extremity cellulitis years ago . (6) Cardiac murmur: PLAN: She does have a cardiac murmur. He does have what appears to be aortic valve stenosis. He will need to be followed by history, exam, and future echocardiographic studies to monitor for progression of his underlying valvular heart related issues. Addt'l Comments The patient will continue noncardiac evaluation care based upon his other concerning symptoms and her findings by internal medicine. This note was generated using a voice recognition system and there may be incorrect words, spelling or punctuation that were not noted when reviewing the office note prior to saving. Procedure Criteria Type of Procedure Procedure Type: Elective Elective Risks - COVID COVID Risk Discussion: The surgeon/proceduralist and patient have discussed in detail the risk of exposure to and/or potential harm posed by the COVID-19 virus with having a surgery/procedure at this time versus the risk of delaying the surgery/procedure. It is not possible to know either the risk of delaying the surgery or procedure or chance of getting an infection with perfect accuracy, but a joint decision was made between the patient and the surgeon/proceduralist to proceed at this time with the scheduled surgery/procedure as indicated on the consent form.
--- NOTE | 2022-01-26 09:36 | VDLE_ITS ---
Reason For Study: Swelling RIGHT LEFT GSV is normal. GSV is normal. CFV is compressible, spontaneous, phasic, CFV is compressible, spontaneous, phasic, competent and demonstrates normal competent, and demonstrates normal augmentation. augmentation. FV is compressible, spontaneous, phasic, FV is compressible, spontaneous, phasic, competent and demonstrates normal competent and demonstrates normal augmentation. augmentation. POP V is compressible, spontaneous, phasic, POP V is compressible, spontaneous, phasic, competent and demonstrates normal competent and demonstrates normal augmentation. augmentation. T/P Trunk is compressible. T/P Trunk is compressible. PTV is compressible. PTV is compressible. RT PerV is compressible. LT PerV is compressible. Procedure This is a venous duplex using B-mode, color flow and spectral Doppler. Exam performed portable in patient room. A preliminary report was called and/or faxed to PROFESSOR OF ART HISTORY. VL/Venous Duplex US - Christopher Extrem Interpretation Summary No evidence for acute deep venous thrombosis bilateral lower extremities with p atent and compressible bilateral great saphenous veins. Ordering Physician: Shirley Morales Referring Physician: Terry Valiente Performed By: Laura Hernandez RVT
--- NOTE | 2022-01-26 09:40 | PCM.DC ---
Discharge Instructions Diet Discharge Diet: Low fat / Low cholesterol, 1800 Calorie Control Diet and 2000 mg Sodium Diet Activity Discharge Activity: Return to Normal Activity and May Not Drive Dressing / Incision Call your doctor if you observe: Fever of 101 or Higher, Coldness, Increased Pain, Numbness or Tingling, Change in Color, Inability to urinate, Inability to have a bowel movement, Shortness of breath, Dizziness, Fainting spells, Swelling in the ankles, Chest pain, Prolonged hiccupping, Increased palpitations (irregular heartbeat), Calf discomfort and Uncontrolled pain Follow Up Care Test Results: Test results from this visit will be discussed in further detail at your follow-up appointment, if applicable. Discharge Plan Admission Admit Date/Time: 01/25/22 01:12 Primary Reason for Your Visit: NSTEMI Attending Provider: Harley Freedman Primary Care Provider: Terry Valiente Consulting Providers: King Mishra ; Dimas Romero Discharge Orders/Prescriptions Prescriptions: New losartan 50 mg Tablet 25 mg PO DAILY Qty: 30 RF: 2 atorvastatin 40 mg Tablet 40 mg PO QHS Qty: 30 RF: 2 nitroglycerin 0.4 mg Tablet, Sublingual 0.4 mg sublingual Q5M PRN (Reason: Cardiac/Chest Pain) Qty: 30 RF: 0 aspirin 81 mg Tablet,Chewable 81 mg PO BREAKFAST Qty: 30 RF: 2 Brilinta 90 mg Tablet 90 mg PO BID Qty: 60 RF: 2 metoprolol succinate 25 mg capsule,sprinkle,ER 24hr 25 mg PO DAILY Qty: 30 RF: 2 buspirone 10 mg tablet 10 mg PO TID Qty: 90 RF: 0 Continued allopurinol 300 MG tablet 300 mg PO DAILY RF: 0 losartan [Cozaar] 100 MG tablet 100 mg PO DAILY RF: 0 metformin 500 MG tablet 500 mg PO DAILY RF: 0 Discontinued amlodipine 2.5 mg Tablet 2.5 mg PO DAILY RF: 0 Referrals / Follow Up: Terry Valiente MD [Primary Care Provider] - King Mishra MD [STAFF PHYSICIAN] - Within 1 Month Ros Hunt NP, [employer] RANGE TENDER-C [Nurse Practitioner] - 02/15/22 2:00 pm Disposition Disposition (needs filled in before D/C Order can be placed): Home, Self Care
--- NOTE | 2022-01-26 10:00 | EKG12_ITS ---
Test Reason : AM EKG Blood Pressure : / mmHG Vent. Rate : 084 BPM Atrial Rate : 084 BPM P-R Int : 208 ms QRS Dur : 102 ms QT Int : 378 ms P-R-T Axes : 049 031 141 degrees QTc Int : 446 ms Sinus rhythm with occasional Premature ventricular complexes Septal infarct , age undetermined Abnormal ECG When compared with ECG of 25-JAN-2022 11:19, MANUAL COMPARISON REQUIRED, DATA IS UNCONFIRMED Confirmed by JAVIER PORTILLO, WILLIAM ([id number]), development editor MÓNICA PERALTA ([id number]) on 01/27/2022 11:03:56 A M Referred By: DR DOYLE Confirmed By:GLORIA HERRERA MD
--- NOTE | 2022-01-26 10:07 | CASEMGMT ---
Pt to be sent home on Brilinta at discharge and med e-scribed to [facility] in [place]. Call to Kirstin at [facility] and she states co-pay is $47. Pt provided with Brilinta one month free card with instructions at this time. Pt voices no further questions/concerns/needs. Triston GUADALUPE CM
[2022-01-26 10:13] LABS: Cholesterol 151 mg/dL (200); High Density Lipoprotein 31 mg/dL; Triglycerides 182 mg/dL; Very Low Density Lipoprotein 36 mg/dL (5-40)
--- NOTE | 2022-01-26 10:52 | DS.PCM_ITS ---
Documented by User: NUVIA Castro 01/26/22 13:25 Providers Date of Admission: 01/25/22 Primary Care Physician: Dr. Los Angeol MD Consultations 01/25/22 01:41 Consult: Cardiology Routine Consulting Provider: King Mishra Reason for Consult: NSTEMI EMERGENT Consult: No MD Notified: Yes Date Notified: 01/24/22 Time Notified: 23:10 Method of Notification: Verbal Method of Consult:: In-Person Reason For Visit: N STEMI Diagnosis Discharge Diagnosis (1) Non-STEMI (non-ST elevated myocardial infarction): Status: Acute Code(s): I21.4 - Non-ST elevation (NSTEMI) myocardial infarction (2) Cardiomyopathy, ischemic: Status: Acute Code(s): I25.5 - Ischemic cardiomyopathy (3) HTN (hypertension): Status: Chronic Code(s): I10 - Essential (primary) hypertension (4) Diabetes mellitus: Status: Acute Code(s): E11.9 - Type 2 diabetes mellitus without complications (5) Leg edema: Status: Acute Code(s): R60.0 - Localized edema (6) Cardiac murmur: Status: Acute Code(s): R01.1 - Cardiac murmur, unspecified Plan: Patient originally presented on 01/25/2022 with complaints of chest pain and indigestion-like symptoms. Patient further evaluation. Patient's troponin was noted to be elevated at [facility] at 2456 where an EKG was obtained and shows normal sinus rhythm and nonspecific ST-T wave changes in the lateral wall leads. Patient was noted to have a history of hypertension, type 2 diabetes and rheumatoid arthritis. Was noted to be on aspirin, atorvastatin, losartan, metoprolol he is to admission. Patient was subsequently taken for cardiac catheterization which demonstrated a 95% blockage of the LAD. A drug-eluting stent was placed. An echocardiogram was obtained which demonstrates an EF of 40% with mild segmental systolic dysfunction. Patient was noted to have a considerably increased amount of edema to his lower right extremity which patient states has been that way since he had cellulitis bilateral venous duplex of the lower extremities, per Frankie GUADALUPE and report demonstrates compressible vessels, no DVT noted. Was initiated on Brilinta in addition to other cardiac medications that patient was previously on. Patient also demonstrated symptoms of anxiety including intermittent shortness of breath and palpitations. Patient initiated on BuSpar 10 mg 3 times a day. Patient instructed to follow-up with his PCP as well as with cardiology. Medications at Discharge Home Medications allopurinol 300 mg PO DAILY 11/10/13 losartan [Cozaar] 100 mg PO DAILY 11/10/13 metformin 500 mg PO DAILY 11/10/13 aspirin 81 mg PO BREAKFAST #30 tab 01/26/22 atorvastatin 40 mg PO QHS #30 tab 01/26/22 buspirone 10 mg PO TID #90 tab 01/26/22 losartan 25 mg PO DAILY #30 tab 01/26/22 metoprolol succinate 25 mg PO DAILY #30 ea 01/26/22 nitroglycerin 0.4 mg SUBLINGUAL Q5M PRN #30 tab 01/26/22 ticagrelor [Brilinta] 90 mg PO BID #60 tab 01/26/22 Hospital Course Operations None Procedures 2-D Echocardiogram, Cardiac catheterization and EKG Physical Exam Const alert, oriented x3 and no apparent distress General Appearance: cooperative HEENT normocephalic and head/scalp atraumatic Eyes conjunctivae normal and no scleral icterus Neck supple General: trachea midline Resp normal respiratory effort, normal air movement and clear to auscultation bilaterally Cardio regular rate, regular rhythm, S1 normal heart sound, S2 normal heart sound and peripheral pulses 2+ throughout GI normal to inspection, nondistended, normoactive bowel sounds, soft to palpation and non-tender Extremity normal capillary refill General Extremity: edema right lower extremity moderate and no tenderness to palpation of joints or extremities Skin skin turgor normal Lesions: no lesions Rashes: no rashes Neuro no focal motor deficits and no sensory deficits noted Motor Exam: Negative for general weakness Psych affect normal Appearance: appropriate Weight / BMI Weight Weight: 217 lb 2.485 oz Body Mass Index (BMI) 30.2 ABG / Lab / Microbiology Data Result Diagrams: 01/26/22 05:40 01/26/22 05:40 Laboratory: Laboratory Results - last 24 hr 01/25/22 03:52: WBC 6.0, RBC 3.70 L, Hgb 12.9 L, Hct 37.1 L, MCV 100.3 H, MCH 34.9 H, MCHC 34.8, RDW Std Deviation 49.6 H, RDW Coeff of Fabian 13.5, Plt Count 196, MPV 10.6 05/19/22 05:40: WBC 6.0, RBC 3.65 L, Hgb 12.2 L, Hct 35.7 L, MCV 97.8 H, MCH 33.4 H, MCHC 34.2, RDW Std Deviation 49.1 H, RDW Coeff of Fabian 13.7, Plt Count 183, MPV 9.5, Immature Gran % (Auto) 0.500, Neut % (Auto) 71.2 H, Lymph % (Auto) 17.5 L, [place] % (Auto) 8.2, Eos % (Auto) 2.3, Baso % (Auto) 0.3, Absolute Neuts (auto) 4.3, Absolute Lymphs (auto) 1.05, Nucleated RBC % 0 01/26/22 05:40: Sodium 136, Potassium 3.9, Chloride 107, Carbon Dioxide 22.0, Anion Gap 7, BUN 20 H, Creatinine 1.12, Estim Creat Clear Calc 60.70, Est GFR (MDRD) Af Amer 82, Est GFR (MDRD) Non-Af 68, BUN/Creatinine Ratio 17.9, Glucose 124 H, Calcium 8.1 L, Total Bilirubin 0.80, AST 72 H, ALT 37, Alkaline Phosphatase 57, Total Protein 6.2 L, Albumin 2.8 L, Globulin 3.4, Albumin/ Globulin Ratio 0.8 L 01/26/22 05:40: Triglycerides 182, Cholesterol 151, LDL Cholesterol 84, VLDL Cholesterol 36, HDL Cholesterol 31 L Radiography Diagnostic Testing: Radiology Impression Echocardiogram 01/25/22 01:41 Interpretation Summary The study was technically difficult. Contrast injection was performed. Mild segmental systolic dysfunction (see wall motion). The estimated ejection fraction is 40 %. Moderate focal mitral valve calcification of the anterior leaflet. Trivial mitral valve insufficiency. Trivial tricuspid valve insufficiency. Mild to moderate aortic stenosis. Right ventricular systolic pressure estimated to be 29 mmHg. Diastolic function is indeterminate. Ordering Physician: Dimas Romero Referring Physician: LOS AN[place]O Performed By: Vianney Cheema RDCS D/C Instructions Discharge Diet: Low fat / Low cholesterol, 1800 Calorie Control Diet and 2000 mg Sodium Diet Call your doctor if you observe: Fever of 101 or Higher, Coldness, Increased Pain, Numbness or Tingling, Change in Color, Inability to urinate, Inability to have a bowel movement, Shortness of breath, Dizziness, Fainting spells, Swelling in the ankles, Chest pain, Prolonged hiccupping, Increased palpitations (irregular heartbeat), Calf discomfort and Uncontrolled pain Meaningful Use Info Meaningful Use Diagnoses (Choose all that apply): None applicable Discharge Plan Admission Admit Date/Time: 01/25/22 01:12 Primary Reason for Your Visit: NSTEMI Attending Provider: Harley Freedman Primary Care Provider: [place] Consulting Providers: King Mishra ; Dimas Romero Discharge Orders/Prescriptions Prescriptions: New losartan 50 mg Tablet 25 mg PO DAILY Qty: 30 RF: 2 atorvastatin 40 mg Tablet 40 mg PO QHS Qty: 30 RF: 2 nitroglycerin 0.4 mg Tablet, Sublingual 0.4 mg sublingual Q5M PRN (Reason: Cardiac/Chest Pain) Qty: 30 RF: 0 aspirin 81 mg Tablet,Chewable 81 mg PO BREAKFAST Qty: 30 RF: 2 Brilinta 90 mg Tablet 90 mg PO BID Qty: 60 RF: 2 metoprolol succinate 25 mg capsule,sprinkle,ER 24hr 25 mg PO DAILY Qty: 30 RF: 2 buspirone 10 mg tablet 10 mg PO TID Qty: 90 RF: 0 Continued allopurinol 300 MG tablet 300 mg PO DAILY RF: 0 losartan [Cozaar] 100 MG tablet 100 mg PO DAILY RF: 0 metformin 500 MG tablet 500 mg PO DAILY RF: 0 Discontinued amlodipine 2.5 mg Tablet 2.5 mg PO DAILY RF: 0 Referrals / Follow Up: [place] MD [Primary Care Provider] - King Mishra MD [STAFF PHYSICIAN] - Within 1 Month Ros Hunt NP, [employer] PRESS OPERATOR-C [Nurse Practitioner] - 02/15/22 2:00 pm Disposition Disposition (needs filled in before D/C Order can be placed): Home, Self Care Documented by User: Dr. Harley Freedman MD 01/26/22 14:05 Providers Date of Admission: 01/25/22 Date of Discharge: 01/26/22 Reason For Visit: N STEMI Medications at Discharge Home Medications allopurinol 300 mg PO DAILY 11/10/13 losartan [Cozaar] 100 mg PO DAILY 11/10/13 metformin 500 mg PO DAILY 11/10/13 aspirin 81 mg PO BREAKFAST #30 tab 01/26/22 atorvastatin 40 mg PO QHS #30 tab 01/26/22 buspirone 10 mg PO TID #90 tab 01/26/22 losartan 25 mg PO DAILY #30 tab 01/26/22 metoprolol succinate 25 mg PO DAILY #30 ea 01/26/22 nitroglycerin 0.4 mg SUBLINGUAL Q5M PRN #30 tab 01/26/22 ticagrelor [Brilinta] 90 mg PO BID #60 tab 01/26/22 Hospital Course Summary of Care Provided Hospital Course: This patient was seen in conjunction with SUDHEER Watson. I have independently interviewed and examined the patient and reviewed pertinent history, examination findings, laboratory and plan of management. I have reviewed the note and agree with the documented findings with the few additional points. In brief, patient is 76-year-old gentleman was admitted through direct transfer from [facility] ED. Patient does complain of chest discomfort and shortness of breath and dizziness ongoing for about 3 weeks. EKG shows normal sinus rhythm with frequent PVCs but not diagnostic. QTc 4 6 2 ms. High since her troponin is very high. Patient was taken to [facility] Proximal LAD 95% stenosis, diagonal 1 mid luminal irregularities. Patient had PCI done. LV gram EF 45% with anterior hypokinesis and apical akinesis. Discussed with the manager policy. Patient on guideline directed medications for non-STEMI. On aspirin, metoprolol, losartan, Brilinta and atorvastatin. Losartan dose decreased because of blood pressure in normal range. 2D echo was done, EF 40%. Mild to moderate aortic stenosis, trivial MR and TR. echo features suggestive of ischemic cardiomyopathy, chronic heart failure and mild to moderate aortic stenosis. Chest x-ray did not show acute changes as per the ER physician at [facility] therefore does not seem acute heart failure. Fasting profile low HDL 31 otherwise normal range. Venous duplex was done for chronic right lower extremity lymphedema and reported no acute DVT. Discharge medication reconciliation done. Discharge follow-up instructions completed. Discharge process discussed with the patient and all questions were answered to patient's satisfaction. Total time spent, exact 35 minutes on discharge meds reconciliation, examination, coordination of care with nurses and ancillary staff, review of imaging and blood test and discussion with the patient on follow-up instructions. I have discussed my assessment with SUDHEER Watson and orders have been reviewed. Physical Exam Narrative Seen and examined on the day of discharge. Patient history of chronic swelling of the right lower extremity for more than 5 years. He stated it remained swollen after he had cellulitis. Venous duplex was ordered. Patient complains of mild pitting sensation in the xiphisternum area but denies chest pain tightness or pressure. He has chronic shortness of breath on exertion for about 3 weeks prior to non-STEMI. General: Alert, Oriented x3, Cooperative HEENT: Atraumatic, PERRLA, EOMI, Normocephalic Oral: No Gingival or Mucosal Lesions/ Ulcerations Neck: Supple, No JVD, Negative Carotid Bruits Lungs: Air entry diminished in bilateral lung bases. No crepitation/rhonchi Cardiovascular: Regular rate, Regular Rhythm, Normal S1, Normal S2, No murmurs Abdomen: Bowel Sounds Present, Soft, Non Tender, Non-Distended : No renal angle tenderness. No suprapubic tenderness. Extremities: No edema, Capillary Refill Less than 3 Seconds Skin: No rashes, No breakdown Musculoskeletal: No Tenderness to Palpation of Joints or Extremities Neurological: Cranial nerves II-XII grossly intact, DTR 2+/4 and Symmetrical, Neuro grossly intact Psych/Mental Status: Normal Affect, Appropriate. ABG / Lab / Microbiology Data Result Diagrams: 01/26/22 05:40 01/26/22 05:40 Discharge Plan Admission Admit Date/Time: 01/25/22 01:12 Primary Reason for Your Visit: NSTEMI Attending Provider: Harley Freedman Primary Care Provider: [place] Consulting Providers: King Mishra ; Dimas Romero Discharge Orders/Prescriptions Prescriptions: New losartan 50 mg Tablet 25 mg PO DAILY Qty: 30 RF: 2 atorvastatin 40 mg Tablet 40 mg PO QHS Qty: 30 RF: 2 nitroglycerin 0.4 mg Tablet, Sublingual 0.4 mg sublingual Q5M PRN (Reason: Cardiac/Chest Pain) Qty: 30 RF: 0 aspirin 81 mg Tablet,Chewable 81 mg PO BREAKFAST Qty: 30 RF: 2 Brilinta 90 mg Tablet 90 mg PO BID Qty: 60 RF: 2 metoprolol succinate 25 mg capsule,sprinkle,ER 24hr 25 mg PO DAILY Qty: 30 RF: 2 buspirone 10 mg tablet 10 mg PO TID Qty: 90 RF: 0 Continued allopurinol 300 MG tablet 300 mg PO DAILY RF: 0 losartan [Cozaar] 100 MG tablet 100 mg PO DAILY RF: 0 metformin 500 MG tablet 500 mg PO DAILY RF: 0 Discontinued amlodipine 2.5 mg Tablet 2.5 mg PO DAILY RF: 0 Referrals / Follow Up: [place] MD [Primary Care Provider] - King Mishra MD [STAFF PHYSICIAN] - Within 1 Month Ros Hunt NP, [employer] PRESS OPERATOR-C [Nurse Practitioner] - 02/15/22 2:00 pm Disposition Disposition (needs filled in before D/C Order can be placed): Home, Self Care Charges/Coding Visit Charges Inpatient E&M: 27802 Disch Hosp
== END 2022-01-26 15:52 | disposition home or self-care (01) | DRG 247 ==
PROVIDERS: Specialist; Admitting Provider Internal Medicine; PCP Family Medicine; Visit Provider Internal Medicine
DX: I21.4 Non-ST elevation (NSTEMI) myocardial infarction (principal); I50.22 Chronic systolic (congestive) heart failure; I11.0 Hypertensive heart disease with heart failure; E11.9 Type 2 diabetes mellitus without complications; M06.9 Rheumatoid arthritis, unspecified; M10.9 Gout, unspecified; I87.8 Other specified disorders of veins; I89.0 Lymphedema, not elsewhere classified; E78.5 Hyperlipidemia, unspecified; I35.0 Nonrheumatic aortic (valve) stenosis; I25.5 Ischemic cardiomyopathy; Z87.442 Personal history of urinary calculi; Z79.84 Long term (current) use of oral hypoglycemic drugs; Z79.899 Other long term (current) drug therapy; Z87.891 Personal history of nicotine dependence; I49.3 Ventricular premature depolarization
CPT/HCPCS: 36415; 80053; 80061; 84484; 85025; 85027; 85730; 92928; 93005; 93306; 93458; 93970; 99152; 99153; C1874; J7030; Q9957; Q9967; A4216; C1725; C1769; C1887; C1894; C8929; C9600; J1327

== ENCOUNTER → 2022-05-24 | Outpatient (CLI) | payer MEDICARE, SELFPAY ==
--- NOTE | 2022-05-24 10:49 | ECHOLC_ITS ---
Reason For Study: Ischemic CM Procedure This was a limited 2D transthoracic echocardiogram. The study was technically difficult. Contrast injection was performed. Exam performed in department. Left Ventricle Normal LV size. Segmental dysfunction with preserved ejection fraction (see wall motion). The estimated ejection fraction is 55 %. Unable to assess diastolic dysfunction. Anterior [place] : Akinetic. Inferior [place] : Hypokinetic. Lateral [place] : Akinetic. Septal [place] : Hypokinetic. Right Ventricle Normal RV size. Normal systolic function. Atria Normal left atrium. Normal right atrium. No doppler evidence for ASD. Mitral Valve There is no mitral annular calcification. Moderate focal mitral valve calcification of the anterior leaflet. Mild (1+) mitral valve insufficiency. Tricuspid Valve Normal tricuspid valve. Trivial tricuspid valve insufficiency. Unable to estimate RV systolic pressure/pulmonary artery pressure due to technically difficult study. Aortic Valve Trisinus/trileaflet aortic valve. Mild diffuse aortic valve thickening. Moderate focal aortic valve calcification. Mild aortic stenosis. Trivial aortic valve insufficiency. Pulmonic Valve The pulmonic valve is not well visualized. Great Vessels The aortic root is not well visualized. Pericardium/Pleural No pericardial effusion. Medication Diluted definity 2ml given slow IV push to enhance endocardial definition. MMode/2D Measurements & Calculations LVIDd: 5.3 cm IVSd: 0.99 cm LVOT diam: 2.0 cm LVIDs: 4.1 cm LVPWd: 1.1 cm FS: 23.3 % LVOT area: 3.2 cm2 LVAd ap4: 35.9 cm2 SV(MOD-sp4): 61.5 ml SV(sp4-el): 63.5 ml LVLd ap4: 8.9 cm EDV(MOD-sp4): 118.3 ml EDV(sp4-el): 123.5 ml LVAs ap4: 24.2 cm2 LVLs ap4: 8.3 cm ESV(MOD-sp4): 56.8 ml ESV(sp4-el): 60.0 ml EF(MOD-sp4): 52.0 % EF(sp4-el): 51.4 % Doppler Measurements & Calculations Ao V2 max: 256.8 cm/sec LV V1 max: 137.3 cm/sec SV(LVOT): 101.8 ml Ao max P.4 mmHg LV V1 max P.5 mmHg Ao V2 mean: 182.3 cm/sec LV V1 mean P.3 mmHg Ao mean P.6 mmHg LV V1 mean: 97.5 cm/sec Ao V2 VTI: 54.8 cm LV V1 VTI: 31.8 cm LAVELLE(I,D): 1.9 cm2 LAVELLE(V,D): 1.7 cm2 ECHO/Echo Limited w/Contrast Interpretation Summary The study was technically difficult. Contrast injection was performed. Segmental dysfunction with preserved ejection fraction (see wall motion). The estimated ejection fraction is 55 %. Moderate focal mitral valve calcification of the anterior leaflet. Mild (1+) mitral valve insufficiency. Trivial tricuspid valve insufficiency. Mild aortic stenosis. Trivial aortic valve insufficiency. Unable to estimate RV systolic pressure/pulmonary artery pressure due to techni fred difficult study. Unable to assess diastolic dysfunction. Ordering Physician: Ros Hunt Referring Physician: oRs Hunt Performed By: Marsha Max RDCS, RVT
== END | disposition home or self-care (01) ==
LOC: CVS 10:48
PROVIDERS: PCP Nurse Practitioner Family; Referring Provider Nurse Practitioner Gerontology; Visit Provider Nurse Practitioner Gerontology
DX: I25.5 Ischemic cardiomyopathy (principal)
CPT/HCPCS: 93308; Q9957; A4216; C8924

== ENCOUNTER → 2024-10-23 | Outpatient (CLI) | payer MEDICARE, SELFPAY ==
[2024-10-23 15:19] LABS: Hematocrit 39.7 % (40-54); Hemoglobin 13.2 g/dL (13.0-16.5); Mean Corp Hgb Conc 33.2 g/dL (32-36); Mean Corpuscular Hgb 32.6 pg (27.0-32.0); Mean Platelet Vol. 9.7 fl (6.2-12.0); Platelet Count 177 K/mm3 (150-450); RBC Distribution Width CV 13.9 % (11.6-14.6); Red Blood Count 4.05 M/mm3 (4.6-6.2); White Blood Count 5.6 K/mm3 (4.4-11.0)
[2024-10-23 16:01] LABS: Anion Gap 5 (5-15); BUN 21 mg/dL (7-18); BUN/Creat Ratio 17.8 RATIO (10-20); Calcium,Total 9.5 mg/dL (8.5-10.1); Chloride 110 mmol/L (98-107); Creatinine, Serum 1.18 mg/dL (0.70-1.30); EST Glomerular Filtration Rate 63 mL/min (>60); Est Glom Filt Rate - Afr Amer 77 mL/min (>60); Glucose 118 mg/dL (74-106); Potassium 4.4 mmol/L (3.5-5.1); Sodium Level 142 mmol/L (136-145)
[2024-10-26 08:07] LABS: PSA, Free 0.98 ng/mL; PSA, Free % 53.3 % (.)
== END | disposition home or self-care (01) ==
PROVIDERS: PCP Registered Nurse; Referring Provider Urology; Visit Provider Urology
DX: R97.20 Elevated prostate specific antigen [PSA] (principal)
CPT/HCPCS: 36415; 80048; 84153; 84154; 85027

== ENCOUNTER → 2024-10-28 | Outpatient (CLI) | payer MEDICARE, SELFPAY | END | disposition home or self-care (01) | LOC: PSN 09:35 | PROVIDERS: PCP Registered Nurse; Referring Provider Urology; Visit Provider Urology | DX: Z01.818 Encounter for other preprocedural examination (principal) | CPT/HCPCS: 93005 ==

== ENCOUNTER → 2024-11-12 | Outpatient (CLI) | payer MEDICARE, SELFPAY ==
--- NOTE | 2024-11-12 06:58 | ECHOCS_ITS ---
Reason For Study Reason For Study: MUR, , PRE OP CLEARANCE Procedure This was a 2D Doppler, Color Flow transthoracic echocardiogram. The study was technically difficult. Due to body habitus. Contrast injection was performed. Exam performed in department. Left Ventricle Normal LV size. Mild concentric left ventricular hypertrophy. Mild generalized hypokinesis. Moderate inferior hypokinesis. Estimated LVEF 40 to 45%. Stage I diastolic dysfunction. Right Ventricle Normal right ventricle. Atria The left atrium is moderately enlarged. Normal right atrium. Mitral Valve Severe mitral annular calcification. Mild mitral valve regurgitation. Tricuspid Valve Trivial tricuspid valve insufficiency. Normal pulmonary artery pressure. Aortic Valve Moderate aortic valve calcification. Mild to moderate aortic valve stenosis with mild regurgitation. Pulmonic Valve The pulmonic valve is not well visualized. Great Vessels Normal sized aortic root. Pericardium/Pleural No pericardial effusion. Medication Diluted definity 3.0ml given slow IV push to enhance endocardial definition. MMode/2D Measurements & Calculations LVIDd: 5.5 cm IVSd: 1.3 cm LVOT diam: 2.1 cm LVIDs: 4.5 cm LVPWd: 1.2 cm RVDd: 3.7 cm FS: 18.2 % LVOT area: 3.4 cm2 Ao root diam: 3.6 cm LAV(MOD-bp): 103.8 ml LVAd ap4: 48.5 cm2 LA dimension: 4.6 cm LAV(MOD-bp) Indexed: 47.3 ml/m2 LVLd ap4: 10.0 cm LAV(MOD-sp2): 115.3 ml EDV(MOD-sp4): 191.8 ml LAV(MOD-sp4): 93.5 ml EDV(sp4-el): 199.8 ml LVAs ap4: 33.9 cm2 LVLs ap4: 8.6 cm ESV(MOD-sp4): 110.1 ml ESV(sp4-el): 113.7 ml EF(MOD-sp4): 42.6 % EF(sp4-el): 43.1 % LVAd ap2: 39.9 cm2 SV(MOD-sp4): 81.7 ml SV(MOD-sp2): 58.6 ml LVLd ap2: 9.9 cm SI(MOD-sp4): 37.2 ml/m2 SI(MOD-sp2): 26.7 ml/m2 EDV(MOD-sp2): 130.3 ml EDV(sp2-el): 136.0 ml LVAs ap2: 27.6 cm2 LVLs ap2: 8.6 cm ESV(MOD-sp2): 71.7 ml ESV(sp2-el): 75.5 ml EF(MOD-sp2): 45.0 % SV(sp4-el): 86.1 ml LA A4 area: 26.1 cm2 RA A4 area: 17.8 cm2 TAPSE: 2.0 cm Time Measurements MV dec time: 0.17 sec Doppler Measurements & Calculations MV E max owen: 137.6 cm/sec Lat Peak E' Owen: 14.2 cm/sec Med Peak E' Owen: 7.0 cm/sec MV A max owen: 100.3 cm/sec E/E' lat: 9.7 E/E' med: 19.7 MV E/A: 1.4 MV V2 max: 148.8 cm/sec MV P1/2t max owen: 148.4 cm/sec Ao V2 max: 244.5 cm/sec MV max P.9 mmHg MV P1/2t: 56.9 msec Ao max P.1 mmHg MV V2 mean: 85.3 cm/sec MV dec slope: 764.2 cm/sec2 Ao V2 mean: 185.6 cm/sec MV mean P.3 mmHg Ao mean P.9 mmHg MV V2 VTI: 30.4 cm MVA(P1/2t): 3.9 cm2 Ao V2 VTI: 52.7 cm MVA(VTI): 2.0 cm2 AV (velocity ratio): 0.34 LAVELLE(I,D): 1.2 cm2 LAVELLE(V,D): 1.2 cm2 AI max owen: 410.3 cm/sec LV V1 max: 87.6 cm/sec MR max owen: 574.9 cm/sec AI max P.5 mmHg LV V1 max P.1 mmHg MR max P.3 mmHg AI dec slope: 365.8 cm/sec2 LV V1 mean P.7 mmHg MR mean owen: 415.7 cm/sec AI P1/2t: 328.6 msec LV V1 mean: 60.9 cm/sec MR mean P.1 mmHg LV V1 VTI: 18.1 cm MR VTI: 191.2 cm SV(LVOT): 62.1 ml PA V2 max: 84.1 cm/sec TR max owen: 220.5 cm/sec TR max P.5 mmHg ECHO/Echo Complete W/ Contrast Interpretation Summary Mild concentric left ventricular hypertrophy. Mild generalized hypokinesis. Moderate inferior hypokinesis. Estimated LVEF 40 to 45%. Stage I diastolic dysfunction. The left atrium is moderately enlarged. Severe mitral annular calcification. Mild mitral valve regurgitation. Moderate aortic valve calcification. Mild to moderate aortic valve stenosis wit h mild regurgitation. Ordering Physician: Alfredo Vilchis Referring Physician: Mireille Glaser Performed By: Monica Washington, ZINA, RVT
--- NOTE | 2024-11-12 11:23 | STRESSREP_ITS ---
Stress Test Report Date: 11/12/2024 Procedure: Pharmacologic stress nuclear imaging study Indications: History of CAD Consent: Per the patient Procedure: The patient underwent pharmacologic (Regadenoson 0.4mg ) evaluation with a peak heart rate of 98 beats per minute (69%predicted maximal heart rate) and a peak blood pressure of 150/82 mmHg. The baseline ECG demonstrated sinus rhythm with inferolateral ST depressions. The peak pharmacologic ECG demonstrated no diagnostic changes secondary to baseline abnormalities. Occasional PVCs noted post pharmacological infusion. There was no complaint of chest discomfort during pharmacologic infusion or recovery. The patient was injected with 14.8 millicuries of technetium 99m Cardiolite and subsequently rest SPECT Cardiolite nuclear imaging was obtained in the horizontal long, vertical long, and short axis views. The patient underwent pharmacologic (Regadenoson) evaluation. The patient was injected with 44.5 millicuries of technetium 99m Cardiolite and subsequently stress SPECT Cardiolite nuclear imaging was obtained in the horizontal long, vertical long, and short axis views. A gated Cardiolite study at peak stress was obtained. The examination was stopped secondary to completion of protocol. Rest and stress SPECT Cardiolite nuclear imaging status post realignment, normalization, and attenuation correction demonstrate small reversible apical defect suggestive of mild ischemia. Gated images reveal generalized hypokinesis with severe hypokinesis of the inferior wall LV appears dilated. The reported LVEF is 33%. Impression: 1. Pharmacologic (Regadenoson) evaluation 2. Peak pharmacologic ECG with no diagnostic changes. 3. Occasional PVCs noted. 5. Small reversible apical perfusion defect suggestive of ischemia. 6. The gated Cardiolite study reports an LVEF of 33%. LV systolic dysfunction. This note was generated with [employer] software. It may contain incorrect words, spelling, and punctuation that were not noted in checking the note before signing.
== END | disposition home or self-care (01) ==
LOC: CVS 06:21
PROVIDERS: PCP Registered Nurse; Referring Provider Student in an Organized Health Care Education/Training Program; Visit Provider Student in an Organized Health Care Education/Training Program
DX: I25.10 Atherosclerotic heart disease of native coronary artery without angina pectoris (principal); Z95.5 Presence of coronary angioplasty implant and graft; R06.02 Shortness of breath
CPT/HCPCS: 78452; 93017; 93306; A9500; Q9957; A4216; C8929; J2785

== ENCOUNTER 2024-12-02 08:32 | Day surgery (SDC) | payer MEDICARE, SELFPAY ==
--- NOTE | 2024-12-01 08:21 | RAD_ITS ---
EXAM: XR Chest, 2 Views CLINICAL INDICATION: SHORTNESS OF BREATH TECHNIQUE: Frontal and lateral views of the chest. COMPARISON: No relevant prior studies available. FINDINGS: LUNGS AND PLEURAL SPACES: Right basilar atelectasis or pneumonia. No pneumothorax. HEART: Unremarkable. No cardiomegaly. MEDIASTINUM: Unremarkable. Normal mediastinal contour. BONES/JOINTS: Unremarkable. No acute fracture. RAD/Chest PA and Lateral IMPRESSION: Right basilar atelectasis or pneumonia. Reading [facility]
[2024-12-01 08:33] LABS: Absolute Lymphocyte Count 1.53 X10^3/uL (0.83-4.51); Absolute Neutrophil Count 3.8 X10^3/uL (2.0-7.7); Basophil# 0.04 X10^3/uL; Basophil% 0.6 % (0-1); Eosinophil# 0.17 X10^3/uL; Eosinophils% 2.8 % (0-5); Hematocrit 37.7 % (40-54); Hemoglobin 12.6 g/dL (13.0-16.5); Lymphocyte # 1.53 X10^3/ul (0.83-4.51); Lymphocyte % 24.8 % (19-41); Mean Corp Hgb Conc 33.4 g/dL (32-36); Mean Corpuscular Hgb 33.1 pg (27.0-32.0); Mean Platelet Vol. 9.9 fl (6.2-12.0); Monocyte# 0.57 X10^3/uL; Monocyte% 9.3 % (0-10); NRBC Flagged by Analyzer 0 % (0-5); Neutrophil # 3.83 X10^3/uL (2.7-7.7); Neutrophil % 62.2 % (47-70); Platelet Count 157 K/mm3 (150-450); RBC Distribution Width CV 13.9 % (11.6-14.6); RBC Distribution Width SD 50.4 fl (35.1-43.9); Red Blood Count 3.81 M/mm3 (4.6-6.2); White Blood Count 6.2 K/mm3 (4.4-11.0)
[2024-12-01 09:03] LABS: International Normalized Ratio 1.2; Partial Thromboplast Time 28.4 Seconds (24.1-36.2); Prothrombin Time (Protime)PT. 15.5 SECONDS (11.7-14.9)
[2024-12-01 09:07] VITALS: BMI 28.1
[2024-12-01 14:34] LABS: Anion Gap 12 (5-15); BUN 22 mg/dL (4-19); BUN/Creat Ratio 18.6 RATIO (10-20); Calcium,Total 9.3 mg/dL (7.6-11.0); Carbon Dioxide 24.5 mmol/L (21.0-32.0); Chloride 105 mmol/L (98-108); Creatinine, Serum 1.19 mg/dL (0.70-1.20); EST Glomerular Filtration Rate 63 (>60); Estimated Creatinine Clearance 59.21 ml/min (50-250); Glucose 129 mg/dL (70-99); Sodium Level 141 mmol/L (133-145)
--- NOTE | 2024-12-02 11:18 | CL.D_ITS ---
Patient Name: GRACE CASAS Study Date: 12/02/2024 Performing: Karen Michaels MD Ht: 180 inches [phone] cm : 1945 Wt: 91.8 lbs 41.563 kg Age: 79 Gender: male BSA: 2.98 PROCEDURE(S) PERFORMED [id number])[facility] CLINICAL PROFILE AND INDICATIONS Indications: Stable Known CAD Heart Failure: None Stress/Imaging Stress Test w/SPECT MPI: Yes Result: Positive Intermediate RiskStress Test with SPECT MPI: Positive Intermediate Risk CAD Presentations: No Sxs, no angina. CONCLUSIONS Stent to Prox LAD patent, 50% Mid LAD, 60% Ostial D1 RECOMMENDATIONS Medical therapy DESCRIPTION OF PROCEDURE The patient arrived to the procedure lab. The risks and benefits of the procedure as well as a full description of our services here and current unavailability of surgical backup were fully explained to the patient and/or their significant other prior to the catheterization. The Timeout was completed, verifying the correct patient and procedure. The patient's procedural site was prepped and draped in the usual fashion. Local anesthetic was given subcutaneously to right radial region with Lidocaine 2%. Using a modified Seldinger technique, arterial access was obtained via the right radial artery, a 6Fr sheath was inserted. Left Coronary Artery selective angiography was performed in multiple views using a 5 Fr. 4.0 Murray catheter. Right Coronary Artery selective angiography was then performed in multiple views using a 5 Fr. 3DRC (Alex) catheter.The arterial sheath was pulled and a TR Band was applied for hemostasis CORONARY ANGIOGRAPHY DOMINANCE: Right Dominant LEFT MAIN: Angiographically normal LEFT ANTERIOR DESCENDING ARTERY: LAD: Tubular 50% Mid lesion in LAD DIAGONAL 1: Tubular 60% Ostial lesion in DIAG1 CIRCUMFLEX ARTERY: Angiographically normal RIGHT CORONARY ARTERY: Angiographically normal COMPLICATIONS No Complications PROCEDURE MEDICATIONS Versed 1 mg IV Fentanyl 50 mcg IV Oxygen: 2 L/min via nasal cannula SUMMARY OF HEMODYNAMIC DATA Time AIR REST ECG 08:55:39 AO 122/72 (91) SA 10:58:35 Signed By Karen Michaels MD On 12/02/2024 11:17:59 Karen Michaels MD
== END 2024-12-02 13:00 | disposition home or self-care (01) ==
PROVIDERS: Student in an Organized Health Care Education/Training Program; PCP Registered Nurse; Referring Provider Internal Medicine Cardiovascular Disease; Visit Provider Internal Medicine Cardiovascular Disease
DX: I25.10 Atherosclerotic heart disease of native coronary artery without angina pectoris (principal); E11.9 Type 2 diabetes mellitus without complications; I25.5 Ischemic cardiomyopathy; I35.0 Nonrheumatic aortic (valve) stenosis; I10 Essential (primary) hypertension; E78.5 Hyperlipidemia, unspecified; M10.9 Gout, unspecified; R60.0 Localized edema; R06.09 Other forms of dyspnea; R06.02 Shortness of breath; I25.2 Old myocardial infarction; Z79.82 Long term (current) use of aspirin; Z79.84 Long term (current) use of oral hypoglycemic drugs; Z79.899 Other long term (current) drug therapy; Z87.891 Personal history of nicotine dependence; Z95.5 Presence of coronary angioplasty implant and graft
CPT/HCPCS: 36415; 71046; 80048; 85025; 85610; 85730; 93454; 99152; 99153; Q9967; C1769; C1894